=== PATIENT | female | born 1945 | race Caucasian/White ===

== ENCOUNTER 2017-05-23 11:58 | Inpatient (IN) | payer MEDICARE ==
[2017-05-23] VITALS (13 sets, daily range): BP systolic 106–138; BP diastolic 56–95; PULSE 59–138; RESP 14–20; TEMP 98–98.1; O2SAT 95–99
[~2017-05-23] VITALS: Ht 172.7 cm; Wt 126.4 kg
[~2017-05-23 11:58] MED LIST: ASPI-183 PO; CALC600T10 PO; ESTR1 PO; OMEG5CAP PO; SIMV20TA PO; TETA1INJ4 IM; TRIA40P; [UNRECOGNIZED DRUG - REMARK]
--- NOTE | 2017-05-23 12:35 | RADRPT ---
EXAM DATE/TIME: 05/23/2017 12:24 [place] COMPARISON: No previous studies available for comparison. INDICATIONS : AFIB MEDICAL HISTORY : Myocardial infarction. SURGICAL HISTORY : None. ENCOUNTER: Initial ACUITY: 3 days PAIN SCORE: 5/10 LOCATION: Bilateral chest FINDINGS: Cardiomegaly without overt congestive failure. There is no pneumothorax. The portion of the bony ske leton visualized is unremarkable. CONCLUSION: Cardiomegaly without failure. Behzad Paul MD FACR on May 23, 2017 at 12:33 Board Certified Radiologist. This report was verified electronically.
[2017-05-23 14:16] LABS: AUTOMATED NEUTROPHIL # 5.3 TH/MM3 (1.8-7.7); BASOPHIL % 0.5 % (0.0-2.0); EOSINOPHIL # 0.1 TH/MM3 (0-0.4); EOSINOPHIL % 1.2 % (0.0-4.0); HEMATOCRIT 43.2 % (35.0-46.0); HEMOGLOBIN 14.9 GM/DL (11.6-15.3); LYMPHOCYTE # 2.2 TH/MM3 (1.0-4.8); MEAN CELL VOLUME 98.7 FL (80.0-100.0); MEAN CORPUSCULAR HEMOGLOBIN 34.1 PG (27.0-34.0); MEAN CORPUSCULAR HGB CONC 34.6 % (32.0-36.0); MEAN PLATELET VOLUME 7.9 FL (7.0-11.0); MONO % 10.5 % (0.0-8.0); MONOCYTE # 0.9 TH/MM3 (0-0.9); NEUT % 61.8 % (16.0-70.0); PLATELET COUNT 287 TH/MM3 (150-450); RED BLOOD COUNT 4.37 MIL/MM3 (4.00-5.30); RED CELL DISTRIBUTION WIDTH 13.9 % (11.6-17.2); WHITE BLOOD COUNT 8.6 TH/MM3 (4.0-11.0)
[2017-05-23 14:29] LABS: INTERNATIONAL NORMALIZED RATIO 1.1 RATIO
[2017-05-23] MEDS ORDERED: DILTIAZEM HCL 25 MG/5 ML VIAL IV PUSH ONE (14:30)
[2017-05-23 14:35] LABS: ALBUMIN 3.8 GM/DL (3.4-5.0); ALT (GPT) 32 U/L (10-53); AST (GOT) 38 U/L (15-37); BICARBONATE 26.1 MEQ/L (21.0-32.0); BLOOD UREA NITROGEN 14 MG/DL (7-18); CALCIUM 8.5 MG/DL (8.5-10.1); CHLORIDE 105 MEQ/L (98-107); CREATININE 1.05 MG/DL (0.50-1.00); GLOMERULAR FILTRATION RATE 52 ML/MIN (>89); GLUCOSE,RANDOM 86 MG/DL (74-106); MAGNESIUM 2.1 MG/DL (1.5-2.5); SODIUM (NA) 138 MEQ/L (136-145)
[2017-05-23] MEDS ORDERED: ASPI-516 CHEW (14:36)
[2017-05-23 14:39] LABS: ALKALINE PHOSPHATASE 59 U/L (45-117); TOTAL BILIRUBIN ADULT 0.3 MG/DL (0.2-1.0); TROPONIN I LESS THAN 0.02 NG/ML (0.02-0.05)
--- NOTE | 2017-05-23 15:02 | PD ---
HPI Chief Complaint: Cardiac Complaint Time Seen by Provider: 14:21 Travel History International Travel<30 days: No Contact w/Intl Traveler<30days: No Traveled to known affect area: No History of Present Illness HPI This is a 71-year-old female with no significant past medical history, presents here at the request of her physician for evaluation and admission for new onset A. fib/flutter. The patient states over the last 2 weeks she's been fatigued and has had exertional shortness of breath. She denies chest pain, chest pressure. She does report that she has felt her heart fluttering. Patient states that she thought it would go away however it did not. She denies any cough or pleuritic pain. She denies any extremity swelling or edema. There are no other complaints time my examination. PFSH Past Medical History High Cholesterol: Yes Influenza Vaccination: No Past Surgical History Tonsillectomy: Yes Social History Alcohol Use: No Tobacco Use: No Substance Use: No Allergies-Medications (Allergen,Severity, Reaction): Coded Allergies: No Known Allergies (Verified Adverse Reaction, Unknown, 05/23/17) Reported Meds & Prescriptions Reported Meds & Active Scripts Active Simvastatin 20 Mg Tab 20 Mg PO DAILY Estrace (Estradiol) 1 Mg Tab 1 Mg PO DAILY Calcium + D3 (Calcium Carbonate-Cholecalciferol) 600-200 Mg-Unit Tab 1 Tab PO BID Reported Aspirin 81 Mg Chew 81 Mg CHEW DAILY Review of Systems Except as stated in HPI: all other systems reviewed are Neg General / Constitutional: No: Fever, Chills HENT: No: Headaches, Lightheadedness Cardiovascular: Positive: Palpitations, Irregular Rhythm, No: Chest Pain or Discomfort Respiratory: Positive: Shortness of Breath, No: Cough Gastrointestinal: No: Nausea, Vomiting, Abdominal Pain Genitourinary: No: Dysuria, Decreased Urinary Output Musculoskeletal: Positive: Weakness (generalized fatigue), No: Edema, Pain Neurologic: Positive: Weakness (generalized fatigue), No: Dizziness, Headache Physical Exam Narrative GENERAL: Well-developed well-nourished female in no acute rest her distress. SKIN: Focused skin assessment warm/dry. HEAD: Atraumatic. Normocephalic. EYES: No scleral icterus. No injection or drainage. ENT: No nasal bleeding or discharge. Mucous membranes pink and moist. NECK: Trachea midline. No JVD. CARDIOVASCULAR: Tachycardic with a rate in the 130s. It appears to be a flutter on monitor and EKG. RESPIRATORY: No accessory muscle use. Clear to auscultation. Breath sounds equal bilaterally. GASTROINTESTINAL: Abdomen soft, non-tender, nondistended. MUSCULOSKELETAL: No obvious deformities. No clubbing. No cyanosis. No edema. NEUROLOGICAL: Awake and alert. No obvious cranial nerve deficits. Motor grossly within normal limits. Normal speech. PSYCHIATRIC: Appropriate mood and affect; insight and judgment normal. Data Data Last Documented VS Vital Signs Date Time Temp Pulse Resp B/P (MAP) Pulse Ox O2 Delivery O2 Flow Rate FiO2 05/23/17 16:10 122 05/23/17 14:51 17 97 05/23/17 14:24 Room Air 05/23/17 12:08 98.1 Orders Orders Electrocardiogram (05/23/17 12:13) B-Type Natriuretic Peptide (05/23/17 12:13) Ckmb (Isoenzyme) Profile (05/23/17 12:13) Complete Blood Count With Diff (05/23/17 12:13) Comprehensive Metabolic Panel (05/23/17 12:13) Magnesium (Mg) (05/23/17 12:13) Prothrombin Time / Inr (Pt) (05/23/17 12:13) Act Partial Throm Time (Ptt) (05/23/17 12:13) Troponin I (05/23/17 12:13) Chest, Pa & Lat (05/23/17 12:13) Thyroid Stimulating Hormone (05/23/17 14:30) Diltiazem Inj (Cardizem Inj) (05/23/17 14:30) Diltiazem Inj (Cardizem Inj) (05/23/17 14:30) Admit To Inpatient (05/23/17 ) Vital Signs (Adult) Q4H (05/23/17 16:33) Activity Oob With Assistance (05/23/17 16:33) Senior Hadoop Developer / Telemetry .CONTINUOUS (05/23/17 16:33) Diet Heart Healthy (05/23/17 Dinner) Sodium Chloride 0.9% Flush (Ns Flush) (05/23/17 16:45) Sodium Chloride 0.9% Flush (Ns Flush) (05/23/17 21:00) Acetaminophen (Tylenol) (05/23/17 16:45) Ondansetron Inj (Zofran Inj) (05/23/17 16:45) Temazepam (Restoril) (05/23/17 16:45) Scd Bilateral/Knee High CARLA.BID (05/23/17 16:33) Naloxone Inj (Narcan Inj) (05/23/17 16:45) Magnesium Hydroxide Liq (Milk Of Magnesi (05/23/17 16:45) Sennosides (Senokot) (05/23/17 16:45) Bisacodyl Supp (Dulcolax Supp) (05/23/17 16:45) Lactulose Liq (Lactulose Liq) (05/23/17 16:45) Inpatient Certification (05/23/17 ) Metoprolol Tartrate (Lopressor) (05/23/17 22:00) Aspirin Chew (Aspirin Chew) (05/24/17 09:00) Estradiol (Estradiol) (05/24/17 09:00) Calcium-Vit D 250-125 Mg (Oscal-D 250-12 (05/23/17 21:00) Pravastatin (Pravachol) (05/24/17 09:00) Admit Order (Ed Use Only) (05/23/17 16:52) Labs Laboratory Tests Test 05/23/17 14:08 White Blood Count 8.6 TH/MM3 Red Blood Count 4.37 MIL/MM3 Hemoglobin 14.9 GM/DL Hematocrit 43.2 % Mean Corpuscular Volume 98.7 FL Mean Corpuscular Hemoglobin 34.1 PG Mean Corpuscular Hemoglobin Concent 34.6 % Red Cell Distribution Width 13.9 % Platelet Count 287 TH/MM3 Mean Platelet Volume 7.9 FL Neutrophils (%) (Auto) 61.8 % Lymphocytes (%) (Auto) 26.0 % Monocytes (%) (Auto) 10.5 % Eosinophils (%) (Auto) 1.2 % Basophils (%) (Auto) 0.5 % Neutrophils # (Auto) 5.3 TH/MM3 Lymphocytes # (Auto) 2.2 TH/MM3 Monocytes # (Auto) 0.9 TH/MM3 Eosinophils # (Auto) 0.1 TH/MM3 Basophils # (Auto) 0.0 TH/MM3 CBC Comment DIFF FINAL Differential Comment Prothrombin Time 11.0 SEC Prothromb Time International Ratio 1.1 RATIO Activated Partial Thromboplast Time 25.7 SEC Blood Urea Nitrogen 14 MG/DL Creatinine 1.05 MG/DL Random Glucose 86 MG/DL Total Protein 8.0 GM/DL Albumin 3.8 GM/DL Calcium Level 8.5 MG/DL Magnesium Level 2.1 MG/DL Alkaline Phosphatase 59 U/L Aspartate Amino Transf (AST/SGOT) 38 U/L Alanine Aminotransferase (ALT/SGPT) 32 U/L Total Bilirubin 0.3 MG/DL Sodium Level 138 MEQ/L Potassium Level 4.6 MEQ/L Chloride Level 105 MEQ/L Carbon Dioxide Level 26.1 MEQ/L Anion Gap 7 MEQ/L Estimat Glomerular Filtration Rate 52 ML/MIN Total Creatine Kinase 53 U/L Troponin I LESS THAN 0.02 NG/ML B-Type Natriuretic Peptide 88 PG/ML Thyroid Stimulating Hormone 3rd Gen 1.670 uIU/ML [facility] Medical Decision Making Medical Screen Exam Complete: Yes Emergency Medical Condition: Yes Differential Diagnosis A. fib versus a flutter versus SVT versus sinus tach Narrative Course 71-year-old female with no significant past medical history, presents here with a flutter with RVR. Patient has no history of. Patient's been not feeling well for last 2 weeks. She denies any chest pain, chest pressure. She has no history of thyroid disease. She has no history of valvular disease or murmurs. The patient has been started on a diltiazem drip after a bolus. She is rate controlled currently. Labs are within normal limits. She'll be admitted to the hospital. Case was discussed with Dr. Treviño, [facility], who is agreeable to the admission. Diagnosis Primary Impression: Atrial flutter with rapid ventricular response Admitting Information Admitting Physician Requests: Admit Butch Alfonso MD May 23, 2017 15:02
[2017-05-23] MEDS: DILTIAZEM INJ 125 MG in SODIUM CHLORIDE 0.9% INJ 100 ML IV PRN (15:06)
[2017-05-23] MEDS ORDERED: LACTULOSE SYRUP 20 GM/30 ML CUP PO PRN (16:45)
[2017-05-23] MEDS ORDERED: SODIUM CHLORIDE 0.9% FLUSH 10 ML FLUSH IV FLUSH PRN (16:45)
[2017-05-23] MEDS ORDERED: TEMAZEPAM 15 MG CAP PO PRN (16:45)
[2017-05-23] MEDS ORDERED: NALOXONE HCL 0.4 MG/ML AMP IV PUSH PRN (16:45)
[2017-05-23] MEDS ORDERED: SENNOSIDES 8.6 MG TAB PO PRN (16:45)
[2017-05-23] MEDS ORDERED: MAGNESIUM HYDROXIDE SUSP 30 ML CUP PO PRN (16:45)
[2017-05-23] MEDS ORDERED: ACETAMINOPHEN 325 MG TAB PO PRN (16:45)
[2017-05-23] MEDS ORDERED: ONDANSETRON HCL 4 MG/2 ML VIAL IVP PRN (16:45)
[2017-05-23] MEDS ORDERED: BISACODYL 10 MG SUPP RECTAL PRN (16:45)
--- NOTE | 2017-05-23 17:12 | HHI.HP ---
HPI Service [facility] Primary Care Physician Rasheeda Tijerina MD Admission Diagnosis new onset aflutter with rvr. Diagnoses: Chief Complaint: Atrial flutter. Travel History International Travel<30 Days: No Contact w/Intl Traveler <30 Da: No Traveled to Known Affected Are: No History of Present Illness Ms. Sierra is a transgender 71 year old female with a history of hyperlipidemia who presents to the ED at the advise of her PCP regarding Atrial flutter/Atrial fibrillation. She reports fatigue, exertional dyspnea over two weeks prior to this admission. At the time of this interview, she denies any chest pain, shortness of breath, fever, chills. No cough, abdominal pain. No changes in bowel or bladder habits. Patient's is at bedside. Review of Systems Except as stated in HPI: all other systems reviewed are Neg Past Family Social History Past Medical History Hyperlipidemia Past Surgical History Gender change surgery (male --> female). Tonsillectomy Reported Medications Simvastatin 20 Mg Tab 20 Mg PO DAILY Estrace (Estradiol) 1 Mg Tab 1 Mg PO DAILY Calcium + D3 (Calcium Carbonate-Cholecalciferol) 600-200 Mg-Unit Tab 1 Tab PO BID Reported Aspirin 81 Mg Chew 81 Mg CHEW DAILY Allergies: Coded Allergies: No Known Allergies (Verified Adverse Reaction, Unknown, 05/23/17) Family History Mom/Dad had cancer. No heart disease. Social History Denies using tobacco, alcohol or illicit drugs. Physical Exam Vital Signs Vital Signs Date Time Temp Pulse Resp B/P (MAP) Pulse Ox O2 Delivery O2 Flow Rate FiO2 05/23/17 16:10 122 05/23/17 15:29 87 115/72 (86) 05/23/17 15:06 70 115/72 05/23/17 14:51 87 17 97 05/23/17 14:43 130 18 106/75 (85) 98 05/23/17 14:24 132 18 132/78 (96) 97 Room Air 05/23/17 12:08 98.1 138 14 138/95 (109) 97 Physical Exam GENERAL: This is a well-nourished, well-developed patient, in no apparent distress. Obese. SKIN: No rashes, ecchymoses or lesions. Warm and dry. HEAD: Atraumatic. Normocephalic. No temporal or scalp tenderness. EYES: Pupils equal round and reactive. No injection or drainage. ENT: Nose without bleeding, purulent drainage or septal hematoma. Airway patent. NECK: Trachea midline. No lymphadenopathy. Supple, nontender, no meningeal signs. CARDIOVASCULAR: Irreg rhythm with tachycardia without murmurs, gallops, or rubs. No JVD. RESPIRATORY: Clear to auscultation. Breath sounds equal bilaterally. No wheezes , rales, or rhonchi. GASTROINTESTINAL: Abdomen soft, non-tender, nondistended. No guarding. MUSCULOSKELETAL: Extremities without clubbing, cyanosis, or edema. NEUROLOGICAL: Awake and alert. Cranial nerves II through XII intact. No focal neurological deficits. Normal speech. Laboratory Laboratory Tests Test 05/23/17 14:08 White Blood Count 8.6 Red Blood Count 4.37 Hemoglobin 14.9 Hematocrit 43.2 Mean Corpuscular Volume 98.7 Mean Corpuscular Hemoglobin 34.1 Mean Corpuscular Hemoglobin Concent 34.6 Red Cell Distribution Width 13.9 Platelet Count 287 Mean Platelet Volume 7.9 Neutrophils (%) (Auto) 61.8 Lymphocytes (%) (Auto) 26.0 Monocytes (%) (Auto) 10.5 Eosinophils (%) (Auto) 1.2 Basophils (%) (Auto) 0.5 Neutrophils # (Auto) 5.3 Lymphocytes # (Auto) 2.2 Monocytes # (Auto) 0.9 Eosinophils # (Auto) 0.1 Basophils # (Auto) 0.0 CBC Comment DIFF FINAL Differential Comment Prothrombin Time 11.0 Prothromb Time International Ratio 1.1 Activated Partial Thromboplast Time 25.7 Blood Urea Nitrogen 14 Creatinine 1.05 Random Glucose 86 Total Protein 8.0 Albumin 3.8 Calcium Level 8.5 Magnesium Level 2.1 Alkaline Phosphatase 59 Aspartate Amino Transf (AST/SGOT) 38 Alanine Aminotransferase (ALT/SGPT) 32 Total Bilirubin 0.3 Sodium Level 138 Potassium Level 4.6 Chloride Level 105 Carbon Dioxide Level 26.1 Anion Gap 7 Estimat Glomerular Filtration Rate 52 Total Creatine Kinase 53 Troponin I LESS THAN 0.02 B-Type Natriuretic Peptide 88 Thyroid Stimulating Hormone 3rd Gen 1.670 Result Diagram: 05/23/17 1408 05/23/17 1408 Imaging Last Impressions Chest X-Ray 05/23/17 1213 Signed Impressions: Service Date/Time: Tuesday, May 23, 2017 12:24 - CONCLUSION: Cardiomegaly without failure. Behzad Paul MD FACR Neshai VTE Risk Assessment Caprini VTE Risk Assessment: Mod/High Risk (score >= 2) Caprini Risk Assessment Model Point Value = 1 Point Value = 2 Point Value = 3 Point Value = 5 Age 41-60 Minor surgery BMI > 25 kg/m2 Swollen legs Varicose veins or History of unexplained or recurrent spontaneous Oral contraceptives or hormone replacement Sepsis (< 1 month) Serious lung disease, including pneumonia (< 1 month) Abnormal pulmonary function Acute myocardial infarction Congestive heart failure (< 1 month) History of inflammatory bowel disease Medical patient at bed rest Age 61-74 Arthroscopic surgery Major open surgery (> 45 min) Laparoscopic surgery (> 45 min) Malignancy Confined to bed (> 72 hours) Immobilizing plaster cast Central venous access Age >= 75 History of VTE Family history of VTE Factor V Leiden Prothrombin [id number] Lupus anticoagulant Anticardiolipin antibodies Elevated serum homocysteine Heparin-induced thrombocytopenia Other congenital or acquired thrombophilia Stroke (< 1 month) Elective arthroplasty Hip, pelvis, or leg fracture Acute spinal cord injury (< 1 month) Prophylaxis Regimen Total Risk Factor Score Risk Level Prophylaxis Regimen 0-1 Low Early ambulation 2 Moderate Order ONE of the following: *Sequential Compression Device (SCD) *Heparin 5000 units SQ BID 3-4 Higher Order ONE of the following medications: *Heparin 5000 units SQ TID *Enoxaparin/Lovenox 40 mg SQ daily (WT < 150 kg, CrCl > 30 mL/min) *Enoxaparin/Lovenox 30 mg SQ daily (WT < 150 kg, CrCl > 10-29 mL/min) *Enoxaparin/Lovenox 30 mg SQ BID (WT < 150 kg, CrCl > 30 mL/min) AND/OR *Sequential Compression Device (SCD) 5 or more Highest Order ONE of the following medications: *Heparin 5000 units SQ TID (Preferred with Epidurals) *Enoxaparin/Lovenox 40 mg SQ daily (WT < 150 kg, CrCl > 30 mL/min) *Enoxaparin/Lovenox 30 mg SQ daily (WT < 150 kg, CrCl > 10-29 mL/min) *Enoxaparin/Lovenox 30 mg SQ BID (WT < 150 kg, CrCl > 30 mL/min) AND *Sequential Compression Device (SCD) Assessment and Plan Problem List: (1) Atrial flutter ICD Code: I48.92 - Unspecified atrial flutter (2) Hyperlipidemia ICD Code: E78.5 - Hyperlipidemia, unspecified Assessment and Plan Ms. Sierra is a pleasant 71 year old female (trans-gender) who presents to the ED today at the advise of her PCP regarding Atrial flutter/Atrial fibrillation. She does not have any history of cardiac arrhythmia. - Atrial flutter - New onset, EKG reviewed by me. - Patient is currently on Cardizem drip, we will continue this drip. - Start Metoprolol 12.5mg Q8hrs, we can likely increase to 25mg BID if BP permits. - Cardizem drip was maxed out and heart rate was still in the RVR range. - Will initiate Cardizem PO as well. - We'll obtain 2D echo and Cardiology (EP) consult. Patient will likely benefit from RF ablation. - [id number] score would be 1 (age, biological gender male). - Aspirin 81mg Qday would be reasonable for now. - Hyperlipidemia - continue statin. Full code. Heparin SQ Physician Certification 2 Midnight Certification Type: Admission for Inpatient Services Order for Inpatient Services The services are ordered in accordance with Medicare regulations or non- Medicare payer requirements, as applicable. In the case of services not specified as inpatient-only, they are appropriately provided as inpatient services in accordance with the 2-midnight benchmark. Estimated LOS (days): 2 days is the estimated time the patient will need to remain in the hospital, assuming treatment plan goals are met and no additional complications. Post-Hospital Plan: Home Sarah Treviño DO May 23, 2017 17:11
[2017-05-23] MEDS ORDERED: DILTIAZEM HCL 60 MG TAB PO ONE (18:30)
[2017-05-23] MEDS ORDERED: METOPROLOL TARTRATE 25 MG TAB PO SCH (22:00)
[2017-05-23] MEDS: SODIUM CHLORIDE 0.9% FLUSH 10 ML FLUSH IV FLUSH SCH (22:06)
[2017-05-23] MEDS: CALCIUM/VITAMIN D 250 MG/125 U TAB PO SCH (22:06)
[2017-05-24] VITALS (16 sets, daily range): BP systolic 94–121; BP diastolic 54–76; PULSE 56–93; RESP 16–18; TEMP 97.3–98.6; O2SAT 93–97
[2017-05-24] MEDS: DILTIAZEM HCL 60 MG TAB PO SCH ×3 (00:20→13:06)
[2017-05-24] MEDS: DILTIAZEM INJ 125 MG in SODIUM CHLORIDE 0.9% INJ 100 ML IV PRN (00:55)
[2017-05-24] MEDS ORDERED: HEPARIN SODIUM - SQ 10,000 UNITS/ML VIAL SQ SCH (09:00)
[2017-05-24] MEDS: PRAVASTATIN SOD 40 MG TAB PO SCH (09:00)
--- NOTE | 2017-05-24 09:42 | HHI.PR ---
Subjective Remarks follow-up atrial fibrillation/flutter 05/24/17-patient seen and examined, currently denies any chest pain, shortness of breath or heart palpitation. Patient reported a one-month history of viral illness for which he self medicated with cough syrup Objective Vitals Vital Signs Date Time Temp Pulse Resp B/P (MAP) Pulse Ox O2 Delivery O2 Flow Rate FiO2 05/24/17 08:03 97.3 56 17 114/65 (81) 96 05/24/17 07:13 Room Air 05/24/17 04:25 58 05/24/17 04:00 98.0 60 16 95/57 (70) 95 05/24/17 04:00 Room Air 05/24/17 02:00 59 05/24/17 01:00 59 05/24/17 00:55 63 94/54 05/24/17 00:00 Room Air 05/24/17 00:00 98.2 60 16 94/54 (67) 96 05/23/17 23:59 59 05/23/17 20:03 104 05/23/17 20:00 Room Air 05/23/17 20:00 98.0 84 16 116/56 (76) 96 05/23/17 18:30 05/23/17 17:53 127 18 120/56 (77) 96 Room Air 05/23/17 17:40 98.1 103 20 124/60 (81) 95 05/23/17 17:29 93 18 120/70 (87) 99 Room Air 05/23/17 17:22 92 18 120/70 (87) 96 Room Air 05/23/17 16:10 122 05/23/17 15:29 87 115/72 (86) 05/23/17 15:06 70 115/72 05/23/17 14:51 87 17 97 05/23/17 14:43 130 18 106/75 (85) 98 05/23/17 14:24 132 18 132/78 (96) 97 Room Air 05/23/17 12:08 98.1 138 14 138/95 (109) 97 I/O 05/23/17 05/23/17 05/23/17 05/24/17 05/24/17 05/24/17 06:59 14:59 22:59 06:59 14:59 22:59 Intake Total 120 ml Balance 120 ml Intake IV Total 120 ml Result Diagram: 05/23/17 1408 05/23/17 1408 Imaging Last Impressions Chest X-Ray 05/23/17 1213 Signed Impressions: Service Date/Time: Tuesday, May 23, 2017 12:24 - CONCLUSION: Cardiomegaly without failure. Behzad Paul MD FACR Objective Remarks GENERAL: NAD SKIN: Warm and dry. HEAD: Normocephalic. EYES: No scleral icterus. No injection or drainage. NECK: Supple, trachea midline. No JVD or lymphadenopathy. CARDIOVASCULAR: Irregular Regular rate and rhythm without murmurs, gallops, or rubs. RESPIRATORY: Breath sounds equal bilaterally. No accessory muscle use. GASTROINTESTINAL: Abdomen soft, non-tender, nondistended. MUSCULOSKELETAL: No cyanosis, or edema. BACK: Nontender without obvious deformity. No CVA tenderness. A/P Problem List: (1) Atrial flutter ICD Code: I48.92 - Unspecified atrial flutter (2) Hyperlipidemia ICD Code: E78.5 - Hyperlipidemia, unspecified Assessment and Plan 71-year-old female with - Atrial flutter/ fibrillation - s/p Cardizem drip and Currently on Cardizem by mouth 60 mg every 6H, Lopressor 25mg BID , aspirin 81 mg daily. - Thyroid dysfunction ruled out and Continue with ACS rule out per protocol with serial cardiac enzyme and EKGs - 2D echo pending and Cardiology (EP) consulted - [id number] score would be 1 (age, biological gender male). - Hyperlipidemia - continue statin. Full code. Heparin SQ Trenton Landry MD May 24, 2017 09:42
[2017-05-24] MEDS: ASPIRIN 81 MG CHEW TAB CHEW SCH (09:56)
[2017-05-24] MEDS: ESTRADIOL 1 MG TAB PO SCH (09:56)
[2017-05-24] MEDS: SODIUM CHLORIDE 0.9% FLUSH 10 ML FLUSH IV FLUSH SCH ×2 (09:56→22:03)
[2017-05-24] MEDS: CALCIUM/VITAMIN D 250 MG/125 U TAB PO SCH ×2 (09:57→22:01)
[2017-05-24] MEDS: METOPROLOL TARTRATE 25 MG TAB PO SCH ×2 (09:58→10:00)
[2017-05-24 11:46] LABS: TROPONIN I LESS THAN 0.02 NG/ML (0.02-0.05)
[2017-05-24] MEDS ORDERED: PROPOFOL 200 MG/20 ML AMP IV ONE (12:00)
[2017-05-24] MEDS ORDERED: PHENYLEPH/NS 1000 MCG/10 ML SYR IV ONE (12:00)
[2017-05-24] MEDS ORDERED: ePHEDrine/NS 25 MG/5 ML SYRINGE IV ONE (12:00)
--- NOTE | 2017-05-24 12:46 | EKG ---
Date Performed: 05/24/2017 Time Performed: 11:47:58 PTAGE: 71 years EKG: ATRIAL FLUTTER WITH VARIABLE BLOCK PREVIOUS TRACING : 05/23/2017 14.05 Compared to the previous tracing rate slower DOCTOR: Felicia Jara Interpretating Date/Time 05/24/2017 12:46:00
--- NOTE | 2017-05-24 15:09 | ECHRPT ---
Indication: AFIB FLUTTER CONCLUSIONS Normal left ventricular size. Wall thickness is normal. The left ventricular systolic function is moderately reduced with an estimated ejection fraction in the range of 40-45%. Mitral annular calcification is present. There is a trivial pericardial effusion present. BP: 95 / 57 HR: 60 Rhythm: MEASUREMENTS (Male / Female) Normal Values Technical Quality:Fair 2D ECHO LV Diastolic Diameter PLAX 4.4 cm 4.2 - 5.9 / 3.9 - 5.3 cm LV Systolic Diameter PLAX 3.3 cm IVS Diastolic Thickness 1.0 cm 0.6 - 1.0 / 0.6 - 0.9 cm LVPW Diastolic Thickness 0.6 cm 0.6 - 1.0 / 0.6 - 0.9 cm LV Relative Wall Thickness 0.4 RV Internal Dim ED PLAX 1.9 cm DOPPLER Mitral E Point Velocity 64.7 cm/s TR Peak Velocity 174.0 cm/s TR Peak Gradient 12.1 mmHg FINDINGS LEFT VENTRICLE Normal left ventricular size. Wall thickness is normal. The left ventricular systolic function is moderately reduced with an estimated ejection fraction in the range of 40-45%. RIGHT VENTRICLE Normal right ventricular size and systolic function. LEFT ATRIUM The left atrial size is normal. RIGHT ATRIUM The right atrial size is normal. ATRIAL SEPTUM Normal atrial septal thickness without atrial level shunting by limited color doppler interrogation. AORTA The aortic root and proximal ascending aorta are normal in size on limited imaging. MITRAL VALVE Mitral annular calcification is present. AORTIC VALVE Trileaflet aortic valve. No aortic valve stenosis or regurgitation. TRICUSPID VALVE Structurally normal tricuspid valve. No tricuspid valve stenosis or regurgitation. PULMONARY VALVE The pulmonary valve is not well visualized. VESSELS The inferior vena cava is normal in size. PERICARDIUM There is a trivial pericardial effusion present. Rishabh Cox MD, FACC, FSCAI (Electronically Signed) Final Date:24 May 2017 15:08
--- NOTE | 2017-05-24 16:29 | EKG ---
Date Performed: 05/23/2017 Time Performed: 14:05:18 PTAGE: 71 years EKG: ATRIAL FLUTTER/TACHYCARDIA WITH RAPID VENTRICULAR RESPONSE INFERIOR MYOCARDIAL INFARCTION A NTEROSEPTAL MYOCARDIAL INFARCTION ABNORMAL ECG NO PREVIOUS TRACING Clinical correlation strongly recommended DOCTOR: Azam Rankin Interpretating Date/Time 05/24/2017 16:28:47
[2017-05-24] MEDS ORDERED: HEPARIN-NS/PF INJ 500 ML ONE (16:40)
[2017-05-24 17:28] LABS: TROPONIN I LESS THAN 0.02 NG/ML (0.02-0.05)
[2017-05-24] MEDS ORDERED: SODIUM CHLOR 0.9% 250 ML INJ 250 ML ONE (17:44)
[2017-05-24] MEDS ORDERED: ISOPROTERENOL HCL 1 MG/5 ML AMP ONE (17:44)
[2017-05-24] MEDS ORDERED: PROPOFOL 200 MG/20 ML AMP ONE (17:50)
--- NOTE | 2017-05-24 18:14 | CATHPROC ---
AVIS HIS Report Study Information Study Number Admission Scheduled Start Study Start [id number] May 23 2017 4:54PM 05/24/2017 May 24 2017 3:51PM [facility] Electrophysiology Study Admit Source Facility Department Other [facility] Physician and Clinical Staff Initial Cleo Maldonado Wireworker Supervisor Jonathan, Kat,WARP KNITTER HELPER TECH2 Wireworker Supervisor Brooke Walter,RN Other Anesthesia, TOOL AND PRODUCTION PLANNER Recorder Brooke Walter,RA Recorder Lynne Gonzalez RN Scrub Damari Ibarra,ELECTRIC MOTOR FITTER TECH2 Procedures Performed Procedure Location (Site) Vessel Name Ablation Procedure RF Ablation Isthmus Other Equipment Time Tab Card Press Operator Description Size Mfg Part Number Used/Scraped BIOSENSE ERVIN CATHETER, CELSIUS DS, 8MM, F [id number] 16:54 FR 7 Used INC. TYPE QUAD *[id number] 16:52 noodls [employer] PACK, CCL CUSTOM * Used *[id number] 16:52 noodls PACER DAON, LIMB * 2530 *[id number] Used [id number] 16:52 [employer],WARM AIR CCL * Used *[id number] 16:54 [employer] CATHETER, JSN, QUAD FR 5 Used *[id number] 16:54 [employer] MEDICAL CATHETER, JSN, QUAD FR 5 Used *[id number] 16:54 [employer] MEDICAL CATHETER, JSN, QUAD FR 5 Used *[id number] 16:54 [employer] MEDICAL CATHETER, JSN, QUAD FR 5 Used *[id number] 16:54 [employer] MED[employer] SHEATH, EPS, FR5 FAST CATH FR 5 Used *[id number] 16:54 [employer] SHEATH, EPS, FR5 FAST CATH FR 5 Used *[id number] 16:54 [employer] SHEATH, EPS, FR5 FAST CATH FR 5 Used *[id number] 16:54 [employer] SHEATH, EPS, FR6 FAST CATH FR 6 Used *[id number] 16:54 [employer] SHEATH, EPS, FR8 FAST CATH FR 8 Used *[id number] History: Allergies Allergy Reaction No Known Allergies History: Risk Factors Family History of Hypertension Dyslipidemia Previous NH Previous Heart Failure Premature CAD Yes Yes No No No Prior Valve Prior PCI Prior CABG Surgery No No No Cerebrovascular Peripheral Artery Chronic Lung On Dialysis Diabetes Disease Disease Disease No No No No No History: Risk Factors Selection Items Obesity Labs Hgb (g/dl) Hct (%) RBC (MIL/MM3) WBC (l/cumm) Platelets (thousands) 11.60-17.00 35.00-51.00 4.00-5.90 4.00-11.00 150.00-450.00 14.0 43 4.3 8.6 287 Glucose (mg/dl) BUN (mg/dl) Creatinine (mg/dl) BUN:Creatinine (1:x) 74.00-106.00 7.00-18.00 0.50-1.30 10.00-20.00 82 14 1.0 14 Na (meq/l) K (meq/l) 136.00-145.00 3.50-5.10 138 4.6 INR (PTT:PT) 0.90-1.10 1.1 Medication Medication Total Dose (Bolus/Oral) Medication Total Dosage/Unit 1% XYLOCAINE 40 mL Medications (Bolus/Oral) Medication Time Given Dosage/Unit Administered By Reason 1% XYLOCAINE 05/24/2017 5:24:41 PM 20 mL Cleo Burton 20 mL 1% XYLOCAINE given in lab by Cleo Burton in Left Groin via Subcutaneous. Ordered by Didier Burton 1% XYLOCAINE 05/24/2017 5:31:35 PM 20 mL Cleo Burton 20 mL 1% XYLOCAINE given in lab by Cleo Burton in Right Groin via Subcutaneous. Ordered by Jazmín Burton. Medication (Drip) Medication Time Given Dosage/Unit Concentration/Unit Diluent (ml) Solution ISUPREL 05/24/2017 5:48:15 PM 10 mcg/min 1 mg 250 NaCl .9 10 mcg/min ISUPREL given in lab by [place] TOOL AND PRODUCTION PLANNER in Left Antecubital via Peripheral IV. Pump/Drip Flow = 150 ml/hr using NaCl .9 with a concentration of 1 mg in 250 ml. Ordered by Cleo Butron. ISUPREL DRIP STOPPED 05/24/2017 5:54:36 PM 0 units/hr 0 D5W 0 units/hr ISUPREL DRIP STOPPED given in lab by Anesthesia, TOOL AND PRODUCTION PLANNER. Pump/Drip Flow = 0 ml/hr using D5W. Ordered by Cleo Burton. Initial Case Assessment Cardiovascular HR NIBP Chest Pain 60 109/57 0 Edema Present Skin color Skin None Normal Warm Dry Circulatory - Right Pulses Dorsalis Pedis 1 Scale (0,1,2,3,4,d) Circulatory - Left Pulses Dorsalis Pedis 1 Scale (0,1,2,3,4,d) Circulatory - Lower Extremities Color Lower Right Color Lower Left Normal Normal Neurological State Oriented to time-place- Alert Moves all extremities person Respiration - General Respiration Rate SpO2 (%) (B/min) 18 97 Final Case Assessment Cardiovascular HR Rhythm NIBP Chest Pain 93 NSR 95/53 0 Edema Present Skin color Skin None Normal Warm Dry Circulatory - Right Pulses Dorsalis Pedis Posterior Tibial Femoral 1 1 1 Scale (0,1,2,3,4,d) Circulatory - Left Pulses Dorsalis Pedis Posterior Tibial Femoral 1 1 1 Scale (0,1,2,3,4,d) Circulatory - Lower Extremities Color Lower Right Color Lower Left Normal Normal Neurological State Oriented to time-place- Alert Moves all extremities person Respiration - General Respiration Rate SpO2 (%) O2 (lpm) (B/min) 19 96 4 Chronological Log Time Study Chronological Log 16:18:50 Patient arrived via Bed. 16:18:50 Patient Name, D.O.B, / Armband Verified By R.N. 16:18:50 Consent signed by the physician and the patient and verified by the [facility] staff. 16:18:50 Patient has been NPO for More than 6Hrs. 16:18:52 Pre-op and post- op instructions given; patient acknowledges understanding of instructions. 16:18:55 History and physical on the chart. 16:20:53 Skin Breakdown- small purple bruise to Rt lower abd. No open areas per pt. 16:21:37 Patient Warmer Placed on the Table. 16:21:38 Disposable Defibrillator Pads Placed On Patient. 16:21:39 Gwendolyn Prominences Protected 16:21:41 A # 20 IV was noted in the Antecubital (left). Grade = 0 0.9%NaCl @ KVO 16:22:01 A # 20 IV was noted in the Hand (right). Grade = 0 0.9% NaCl @ KVO 16:22:30 Verbal Stimulation=2 Physical Stimulation=2 Airway=2 Respiration=2 TOTAL=8. (0=absent, 1=li mited, 2=present) 16:30:33 Anesthesia at bedside. Assumes care of patient. Assessment: Initial Case, HR=60 BPM, ZHUZ=971/57 mmhg, Chest Pain=0, Edema=None, Color=Normal, Skin = Warm, Dry Right Pulses: German Ped=1 Left Pulses: German Ped=1 16:33:00 Lower Right Extremities: Color=Normal Lower Left Extremities: Color=Normal Neurological: State=Alert, Ox3, HERNÁNDEZ Respiration: Resp=18 B/min, SpO2=97 % 16:38:00 Table restraints applied according to hospital policy 16:42:47 Bilateral groins prepped with 2% chlorhexidine. 16:45:37 Draped after a 3 minute waiting time. 16:54:43 Echo present in lab for RAUL. 16:55:44 MD paged 17:03:18 Reference ECG taken 17:15:58 The Recorder is being relieved by Lynne Gonzalez RN. 17:17:31 MD arrived. Time Out. Correct patient, procedure, procedure equipment, site and side verified with physicia n present. Time 17:19:08 concurred by MD, individual staff and TOOL AND PRODUCTION PLANNER. Time Out #2 - Consents verified, patient in correct position, all results are labled and displa yed, safety precautions 17:19:13 taken, antibiotics administered. Time out concurred by MD, individual staff and TOOL AND PRODUCTION PLANNER in procedu re 17:19:54 Case Start 17:19:57 RAUL in progress 17:24:01 RAUL complete 17:24:41 20 mL 1% XYLOCAINE given in lab by Cleo Burton in Left Groin via Subcutaneous. Ordered by Cleo Burton. 17:25:07 Vascular access was obtained in the Fem Vein (left). 17:25:21 Vascular access was obtained in the Fem Vein (left). 17:25:31 Vascular access was obtained in the Fem Vein (left). 17:26:47 A SHEATH, EPS, FR5 FAST CATH FR 5 was advanced into the Fem Vein (left) using the Modified Seldinger technique. 17:27:54 A SHEATH, EPS, FR5 FAST CATH FR 5 was advanced into the Fem Vein (left) using the Modified Seldinger technique. 17:27:59 A SHEATH, EPS, FR5 FAST CATH FR 5 was advanced into the Fem Vein (left) using the Modified Seldinger technique. 17:31:35 20 mL 1% XYLOCAINE given in lab by Cleo Burton in Right Groin via Subcutaneous. Ordered b y Cleo Burton. 17:32:07 Vascular access was obtained in the Fem Vein (right). 17:32:27 Vascular access was obtained in the Fem Vein (right). 17:33:39 A SHEATH, EPS, FR6 FAST CATH FR 6 was advanced into the Fem Vein (right) using the Modified Seldinger technique. 17:33:49 A SHEATH, EPS, FR8 FAST CATH FR 8 was advanced into the Fem Vein (right) using the Modified Seldinger technique. A CATHETER, JSN, QUAD FR 5 was advanced vis Fem Vein (right) and placed in the CS. Placement wa s visually 17:35:21 confirmed under fluoroscopy. A CATHETER, JSN, QUAD FR 5 was advanced vis Fem Vein (left) and placed in the HIS. Placement wa s visually 17:36:17 confirmed under fluoroscopy. A CATHETER, JSN, QUAD FR 5 was advanced vis Fem Vein (left) and placed in the HRA. Placement wa s visually 17:36:38 confirmed under fluoroscopy. A CATHETER, JSN, QUAD FR 5 was advanced vis Fem Vein (left) and placed in the RVA. Placement wa s visually 17:36:46 confirmed under fluoroscopy. A CATHETER, CELSIUS DS, 8MM, F TYPE QUAD FR 7 was advanced vis Fem Vein (right) and placed in t he Isthmus. 17:37:39 Placement was visually confirmed under fluoroscopy. 17:39:25 RF Ablation of the Isthmus with a CATHETER, CELSIUS DS, 8MM, F TYPE QUAD FR 7. 17:42:05 EP Study in progress 10 mcg/min ISUPREL given in lab by Anesthesia, TOOL AND PRODUCTION PLANNER in Left Antecubital via Peripheral IV. Pu mp/Drip Flow = 150 17:48:15 ml/hr using NaCl .9 with a concentration of 1 mg in 250 ml. Ordered by Cleo Burton. 0 units/hr ISUPREL DRIP STOPPED given in lab by Anesthesia, TOOL AND PRODUCTION PLANNER. Pump/Drip Flow = 0 ml/hr us ing D5W. Ordered by 17:54:36 Cleo Burton. 17:55:13 Case End 17:56:12 Catheter(s) removed without difficulty 17:56:36 No case complications noted. 17:56:37 Cine recording checked. 17:56:46 Sheath removed; pressure applied to bilateral groins by TONI Wetzel and ALCON Diego. 18:00:52 CIC called. Spoke to [place]. 18:01:04 Bedside Report will be given. Assessment: Final Case, HR=93 BPM, Rhythm=NSR, NIBP=95/53 mmhg, Chest Pain=0, Edema=None, Col or=Normal, Skin = Warm, Dry Right Pulses: German Ped=1, Post Tib=1, Femoral=1 Left Pulses: German Ped=1, Post Tib=1, Femoral=1 18:04:00 Lower Right Extremities: Color=Normal Lower Left Extremities: Color=Normal Neurological: State=Alert, Ox3, HERNÁNDEZ Respiration: Resp=19 B/min, SpO2=96 %, O2=4 lpm 18:05:05 Verbal Stimulation=2 Physical Stimulation=2 Airway=2 Respiration=2 TOTAL=2. (0=absent, 1= limited, 2=present) 18:11:08 Sterile dressing applied to site 18:11:16 Defibrillator and ground pads removed. Skin intact. 18:11:28 Ablation procedure performed: Aflutter. 18:11:41 EP Procedure was performed. 18:18:00 Patient moved to [facility] End Study - Contrast Media Used In Study Contrast Total Opened (mL) Total Used (mL) Total Wasted (mL) Unspecified 0 0 0 End Study - Maximum Contrast Load Max Contrast Load (mL) 629.1 End Study - Radiation Exposure Fluoro Time (minutes) 1.6 End Study - Sheaths Sheaths Pulled By Sheath Hold Time (min) Damari Ibarra 20 End Study - Patient Disposition Complications Transferred To Interventional Outcome No Telemetry Bed successful
[2017-05-24] MEDS ORDERED: LORazepam 2 MG/ML VIAL IV PUSH PRN (18:15)
[2017-05-24] MEDS ORDERED: oxyCODONE/ACETAMINOPHEN 5 MG/325 MG TAB PO PRN ×2 (18:15)
[2017-05-24] MEDS ORDERED: LIDOCAINE HCL 1% 50 ML VIAL INFIL PRN (18:15)
[2017-05-24] MEDS ORDERED: BACITRACIN OINT 0.9 GM PKT TOP ONE (18:15)
[2017-05-24] MEDS ORDERED: ONDANSETRON HCL 4 MG/2 ML VIAL IV PUSH PRN (18:15)
[2017-05-24] MEDS ORDERED: SODIUM CHLOR 0.9% 250 ML INJ 250 ML IV PRN (18:15)
[2017-05-24] MEDS ORDERED: ATROPINE SULFATE 1 MG/ML VIAL IV PUSH PRN (18:15)
--- NOTE | 2017-05-24 18:24 | MB ---
cc: CONSTANCE MALLORY M.D. DATE OF CONSULTATION: 05/24/2017 REASON FOR CONSULTATION: Atrial flutter with biventricular response. HISTORY OF PRESENT ILLNESS: Ms. Sierra is a 71-year-old female with history of morbid obesity, episode of tachyarrhythmia, admitted to the emergency room due to atrial flutter with biventricular response. During hospitalization, medication was initiated. I was consulted for evaluation and management. The chart was reviewed. The patient was evaluated. ALLERGIES: NONE. SOCIAL HISTORY Negative for smoking and drinking. FAMILY HISTORY Noncontributory to her current medical condition. MEDICATIONS 1. Zocor. 2. Estradiol. 3. Aspirin. 4. Multivitamin. 5. Cardizem p.o. 6. Heparin subcu. 7. Metoprolol. 8. Pravachol. REVIEW OF SYSTEMS She refers palpitation and shortness of breath but no chest pain or chest discomfort. PHYSICAL EXAMINATION: Alert, fully oriented. VITAL SIGNS: Blood pressure on evaluation 140/65, pulse 56, respiratory 18. LUNGS: Ventilated. CARDIOVASCULAR: S1-S2, irregular. No gallop. ABDOMEN: Obese, no masses. EXTREMITIES: No edema. Electrocardiogram showed atrial flutter. LABORATORY DATA Hemoglobin 14.9, white blood cell 8.6, INR 1.1, potassium 4.6, creatinine 1.05. ASSESSMENT AND RECOMMENDATIONS Ms. Sierra has atrial flutter. She requires medication to control, very symptomtic. At this point my recommendation is esophageal echo. If there is no clot, then atrial flutter ablation. The risks, the nature and the benefit of the procedure are clearly stated to her. Risks include pneumothorax, cardiac perforation, stroke and even . She understood and agreed to proceed. Procedure will be performed during hospitalization. Constance Mallory MD /SUKH /5:43 PM /5:51 PM
--- NOTE | 2017-05-24 18:42 | MA ---
cc: CONSTANCE MALLORY M.D. DATE 05/24/2017 Electrophysiology study, CS cannulation, 3-D mapping, radiofrequency ablation of atrial flutter. HISTORY Mrs. Sierra is a 71-year-old female with atrial flutter, referred for electrophysiology study and ablation. The risks, the nature and the benefit of the procedure are clearly stated to her. Risks include pneumothorax, cardiac perforation, stroke and even . She understood and agreed to proceed. DETAILS OF PROCEDURE As written informed consent was obtained prior to her transesophageal echo, the patient was kept on the table where she was prepped and draped in the usual sterile fashion. Conscious sedation was initiated and maintained throughout the procedure by anesthesiologist. Once sedation verified, the right and left inguinal areas were anesthetized with 2% Xylocaine. Using modified Seldinger technique, the left femoral vein was cannulated on three occasions and three guidewires were advanced. Then the right femoral vein was cannulated on two occasions and two guidewire were advanced. Over the wire three 5, one 6 and one 8 Bulgarian Hemaquets were advanced. Then under fluoroscopic guidance through the 5-Bulgarian and 6 Bulgarian Hemaquet, four 5-Bulgarian Tommy curved quadripolar electrophysiology catheters were advanced and positioned on the His, upper right atrium, coronary sinus and right ventricular apex. Basic interval was measured. The patient was in atrial flutter. Further cycle length was around 240 milliseconds. Entrainment was performed. It was positive. Then through the 8-Bulgarian Hemaquet, a Cordis Knox F curve 8 mm mapping radiofrequency ablation catheter was advanced. Then the catheter was ____ at the tricuspid valve annulus. Critical isthmus was mapped and ablated. During ablation cycle length prolonged progressively until converted into sinus rhythm. Further burn was delivered in the area. Then atrial pacing protocol was performed of the coronary sinus. No tachyarrhythmia was induced. Then Isuprel infused, atrial pacing protocol was repeated and again no tachyarrhythmia was induced. At that point procedure was complete. All catheters were removed. The patient going to be transferred to recovery room. No incident to report. The patient tolerated the procedure. Blood loss minimal. IMPRESSION 1. Electrocardiogram. At baseline the patient was in atrial flutter. Postprocedure the patient in sinus rhythm. 2. Basic interval. Base cycle length was around 700 milliseconds. Post ablation it was around 980 milliseconds. AH at 120 and HV at 82 milliseconds. 3. Tachyarrhythmia. Atrial flutter was mapped and ablated. Ablation was successful. CONCLUSION Status electrophysiology study, mapping, radiofrequency ablation of atrial flutter. COMMENT AND RECOMMENDATIONS The patient going to be transferred to the telemetry unit. She will be observed, when stable can be discharged home. MD GARETT Smith/BRANDEN /5:46 PM /6:09 PM
[2017-05-24] MEDS: APIXABAN 5 MG TABLET PO SCH (22:01)
[2017-05-24] MEDS: METOPROLOL TARTRATE 50 MG TAB PO SCH (22:01)
[2017-05-25] VITALS (9 sets, daily range): BP systolic 96–119; BP diastolic 53–76; PULSE 69–91; RESP 16–17; TEMP 97.3–98.3; O2SAT 96–97
[2017-05-25 06:39] LABS: INTERNATIONAL NORMALIZED RATIO 1.1 RATIO; PROTHROMBIN TIME - PATIENT 11.4 SEC (9.8-11.6)
[2017-05-25 07:02] LABS: CHOLESTEROL/ HDL RATIO 2.86 RATIO; HDL CHOLESTEROL 53.1 MG/DL (40.0-60.0)
--- NOTE | 2017-05-25 07:58 | PD.CARD.PN ---
Subjective Subjective Remarks Feeling better. Objective Medications Current Medications Medications (Trade) Dose Ordered Sig/Mallory Route Start Time Stop Time Status Last Admin (NS Flush) 2 ml UNSCH PRN IV FLUSH 05/23/17 16:45 (NS Flush) 2 ml BID IV FLUSH 05/23/17 21:00 05/24/17 22:03 (Tylenol) 650 mg Q4H PRN PO 05/23/17 16:45 (Zofran Inj) 4 mg Q6H PRN IVP 05/23/17 16:45 (Restoril) 15 mg HS PRN PO 05/23/17 16:45 (Narcan Inj) 0.4 mg UNSCH PRN IV PUSH 05/23/17 16:45 (Milk Of Magnesia Liq) 30 ml Q12H PRN PO 05/23/17 16:45 (Senokot) 17.2 mg Q12H PRN PO 05/23/17 16:45 (Dulcolax Supp) 10 mg DAILY PRN RECTAL 05/23/17 16:45 (Lactulose Liq) 30 ml DAILY PRN PO 05/23/17 16:45 (Aspirin Chew) 81 mg DAILY CHEW 05/24/17 09:00 05/24/17 09:56 (Estradiol) 1 mg DAILY PO 05/24/17 09:00 05/24/17 09:56 (Oscal-D 250-125) 500 mg BID PO 05/23/17 21:00 05/24/17 22:01 (Pravachol) 40 mg DAILY PO 05/24/17 09:00 05/24/17 09:00 (Percocet 5-325 Mg) 1 tab Q4H PRN PO 05/24/17 18:15 (Percocet 5-325 Mg) 2 tab Q4H PRN PO 05/24/17 18:15 (Ativan Inj) 0.5 mg UNSCH PRN IV PUSH 05/24/17 18:15 05/25/17 18:14 (Atropine Inj) 0.5 mg UNSCH PRN IV PUSH 05/24/17 18:15 Sodium Chloride 250 ml @ 500 mls/hr ONCE PRN IV 05/24/17 18:15 05/25/17 18:14 (Zofran Inj) 4 mg Q4H PRN IV PUSH 05/24/17 18:15 (Xylocaine 1% Inj (50 ml)) 10 ml UNSCH PRN INFIL 05/24/17 18:15 05/25/17 18:14 (Lopressor) 50 mg Q12H PO 05/24/17 22:00 05/24/17 22:01 (Eliquis) 5 mg BID PO 05/24/17 21:00 05/24/17 22:01 Vital Signs / I&O Vital Signs Date Time Temp Pulse Resp B/P (MAP) Pulse Ox O2 Delivery O2 Flow Rate FiO2 05/25/17 04:00 91 05/25/17 03:56 98.2 88 17 102/60 (74) 97 05/25/17 03:00 69 05/25/17 02:00 84 05/25/17 01:19 96/58 (71) 05/25/17 01:00 75 05/25/17 00:00 98.3 88 16 97/53 (68) 96 05/25/17 00:00 77 05/24/17 23:00 116/67 (83) 05/24/17 23:00 87 05/24/17 22:53 112/65 (81) 05/24/17 22:00 91 05/24/17 21:56 94 Room Air 05/24/17 21:56 98.6 92 18 121/76 (91) 94 05/24/17 21:36 97 05/24/17 21:00 89 05/24/17 20:00 93 05/24/17 19:00 80 05/24/17 12:03 97.5 59 17 98/56 (70) 93 05/24/17 08:03 97.3 56 17 114/65 (81) 96 05/24/17 08:00 76 I/O 05/24/17 05/24/17 05/24/17 05/25/17 05/25/17 05/25/17 07:00 15:00 23:00 07:00 15:00 23:00 Intake Total 120 ml 240 ml Output Total 500 ml Balance 120 ml -260 ml Intake Oral 240 ml IV Total 120 ml Output Urine Total 500 ml Physical Exam GENERAL: Well-nourished, well-developed patient. SKIN: Warm and dry. Groin site soft without bruising or bleeding. HEAD: Normocephalic. EYES: No scleral icterus. No injection or drainage. NECK: Supple, trachea midline. No JVD or lymphadenopathy. CARDIOVASCULAR: Regular rate and rhythm without murmurs, gallops, or rubs. RESPIRATORY: Breath sounds equal bilaterally. No accessory muscle use. GASTROINTESTINAL: Abdomen soft, non-tender, nondistended. EXTREMITIES: No cyanosis, or edema. NEUROLOGICAL: Awake, alert, and oriented x 3. Non-focal. Laboratory Laboratory Tests Test 05/24/17 10:35 05/24/17 15:35 05/25/17 06:09 Total Creatine Kinase 51 U/L 55 U/L Troponin I LESS THAN 0.02 NG/ML LESS THAN 0.02 NG/ML Prothrombin Time 11.4 SEC Prothromb Time International Ratio 1.1 RATIO Activated Partial Thromboplast Time 26.6 SEC Triglycerides Level 188 MG/DL Cholesterol Level 152 MG/DL LDL Cholesterol 61 MG/DL HDL Cholesterol 53.1 MG/DL Cholesterol/HDL Ratio 2.86 RATIO Assessment and Plan Problem List: (1) Atrial flutter with rapid ventricular response ICD Codes: I48.92 - Unspecified atrial flutter Status: Acute Plan: Normal sinus rhythm on telemetry status post atrial flutter ablation. Continue eliquis. May be discharged home at the discretion of the managing team. Follow-up with Dr. foster in 3 weeks per my discussion with him. Alexandra Bills May 25, 2017 07:58
[2017-05-25] MEDS: ESTRADIOL 1 MG TAB PO SCH (09:22)
[2017-05-25] MEDS: ASPIRIN 81 MG CHEW TAB CHEW SCH (09:22)
[2017-05-25] MEDS: METOPROLOL TARTRATE 50 MG TAB PO SCH (09:22)
[2017-05-25] MEDS: CALCIUM/VITAMIN D 250 MG/125 U TAB PO SCH (09:22)
[2017-05-25] MEDS: PRAVASTATIN SOD 40 MG TAB PO SCH (09:22)
[2017-05-25] MEDS: APIXABAN 5 MG TABLET PO SCH (09:22)
[2017-05-25] MEDS: SODIUM CHLORIDE 0.9% FLUSH 10 ML FLUSH IV FLUSH SCH (09:23)
[2017-05-25] MEDS ORDERED: METO-309 PO (11:20)
[2017-05-25] MEDS ORDERED: APIX5TAB PO (11:20)
--- NOTE | 2017-05-25 11:24 | HHI.DS ---
Discharge Summary Admission Date May 23, 2017 at 4:54 pm Discharge Date: May 25, 2017 Admitting Diagnosis new onset aflutter with rvr. (1) Atrial flutter ICD Code: I48.92 - Unspecified atrial flutter (2) Hyperlipidemia ICD Code: E78.5 - Hyperlipidemia, unspecified Procedures RF ablation 05/24/2016 1. Electrocardiogram. At baseline the patient was in atrial flutter. Postprocedure the patient in sinus rhythm. 2. Basic interval. Base cycle length was around 700 milliseconds. Post ablation it was around 980 milliseconds. AH at 120 and HV at 82 milliseconds. 3. Tachyarrhythmia. Atrial flutter was mapped and ablated. Ablation was successful. CONCLUSION Status electrophysiology study, mapping, radiofrequency ablation of atrial flutter. Echo 05/24/2016 Normal left ventricular size. Wall thickness is normal. The left ventricular systolic function is moderately reduced with an estimated ejection fraction in the range of 40-45%. Mitral annular calcification is present. There is a trivial pericardial effusion present. Brief History - From Admission Ms. Sierra is a transgender 71 year old female with a history of hyperlipidemia who presents to the ED at the advise of her PCP regarding Atrial flutter/Atrial fibrillation. She reports fatigue, exertional dyspnea over two weeks prior to this admission. At the time of this interview, she denies any chest pain, shortness of breath, fever, chills. No cough, abdominal pain. No changes in bowel or bladder habits. Patient's is at bedside. CBC/BMP: 05/23/17 1408 05/23/17 1408 Significant Findings Laboratory Tests Test 05/23/17 14:08 05/24/17 10:35 05/24/17 15:35 05/25/17 06:09 Mean Corpuscular Hemoglobin 34.1 PG (27.0-34.0) Monocytes (%) (Auto) 10.5 % (0.0-8.0) Creatinine 1.05 MG/DL (0.50-1.00) Aspartate Amino Transf (AST/SGOT) 38 U/L (15-37) Estimat Glomerular Filtration Rate 52 ML/MIN (>89) Troponin I LESS THAN 0.02 NG/ML LESS THAN 0.02 NG/ML LESS THAN 0.02 NG/ML Triglycerides Level 188 MG/DL (42-150) Imaging Last Impressions Chest X-Ray 05/23/17 1213 Signed Impressions: Service Date/Time: Tuesday, May 23, 2017 12:24 - CONCLUSION: Cardiomegaly without failure. Behzad Paul MD FACR PE at Discharge GENERAL: NAD SKIN: Warm and dry. HEAD: Normocephalic. EYES: No scleral icterus. No injection or drainage. NECK: Supple, trachea midline. No JVD or lymphadenopathy. CARDIOVASCULAR: Irregular Regular rate and rhythm without murmurs, gallops, or rubs. RESPIRATORY: Breath sounds equal bilaterally. No accessory muscle use. GASTROINTESTINAL: Abdomen soft, non-tender, nondistended. MUSCULOSKELETAL: No cyanosis, or edema. BACK: Nontender without obvious deformity. No CVA tenderness. Pt update on day of discharge Patient is currently doing well. No chest pain, SOB, fever, chills. Hospital Course Ms. Sierra is a pleasant 71 year old female (trans-gender) who presents to the ED today at the advise of her PCP regarding Atrial flutter/Atrial fibrillation. She does not have any history of cardiac arrhythmia. - Atrial flutter - New onset, EKG reviewed by me. - Cardiology evaluated patient and patient underwent RF ablation by Dr. Burton (EP). - Echo shows EF 40-45%. - [id number] score would be 1 (age, biological gender male). - Continue Metoprolol for rate control and Apixaban for anti-coagulation - Follow up with Dr. Burton in 3 weeks. - Hyperlipidemia - continue statin. Full code. Apixaban. Pt Condition on Discharge: Good Discharge Disposition: Discharge Home Discharge Time: <= 30 minutes Discharge Instructions DIET: Follow Instructions for: Heart Healthy Diet Activities you can perform: Regular-No Restrictions Follow up Referrals: Cardiology - 3 Weeks with Cleo Burton MD PCP Follow-up - 1 Week New Medications: Apixaban (Eliquis) 5 Mg Tab 5 MG PO BID for Blood Clot Prevention, #60 TAB Metoprolol Tartrate (Lopressor) 50 Mg Tab 50 MG PO Q12H for Heart, #60 TAB Continued Medications: Calcium Carbonate-Cholecalciferol (Calcium + D3) 600-200 Mg-Unit Tab 1 TAB PO BID, #60 TAB 2 Refills Estradiol (Estrace) 1 Mg Tab 1 MG PO DAILY for Estrogen Supplements, #90 TAB 3 Refills Simvastatin (Simvastatin) 20 Mg Tab 20 MG PO DAILY for Cholesterol Management, #90 TAB 3 Refills Discontinued Medications: Aspirin (Aspirin) 81 Mg Chew 81 MG CHEW DAILY, TAB 0 Refills Sarah Treviño DO May 25, 2017 11:24 am
--- NOTE | 2017-05-25 21:15 | EKG ---
Date Performed: 05/25/2017 Time Performed: 05:07:30 PTAGE: 71 years EKG: Sinus rhythm with 1st degree A-V block Left axis deviation Abnormal ECG PREVIOUS TRACING : 05/24/2017 20.28 Compared to prior tracing no significant change DOCTOR: Felicia Jara Interpretating Date/Time 05/25/2017 21:15:03
--- NOTE | 2017-05-25 21:44 | EKG ---
Date Performed: 05/24/2017 Time Performed: 20:28:50 PTAGE: 71 years EKG: Sinus rhythm with 1st degree A-V block Left axis deviation Possible anteroseptal infarct - age undetermined Abnor mal ECG PREVIOUS TRACING : 05/24/2017 11.47 Compared to the previous tracing a flutter no longer presen t DOCTOR: Felicia Jara Interpretating Date/Time 05/25/2017 21:43:15
== END 2017-05-25 13:06 | disposition home or self-care (01) | DRG 274 ==
LOC: NEPC 11:58 → NEDA 16:54 → N04B 18:20 → HCIS 05-24 15:54
PROVIDERS: ADMIT Hospitalist; ATTEND Hospitalist
PROC: 02K83ZZ Map Conduction Mechanism, Percutaneous Approach (ICD-10-PCS; 2017-05-24)
PROC: 4A023FZ Measurement of Cardiac Rhythm, Percutaneous Approach (ICD-10-PCS; 2017-05-24)
PROC: 4A0234Z Measurement of Cardiac Electrical Activity, Percutaneous Approach (ICD-10-PCS; 2017-05-24)
PROC: 02583ZZ Destruction of Conduction Mechanism, Percutaneous Approach (ICD-10-PCS; principal; 2017-05-24 18:15)
DX: I48.92 Unspecified atrial flutter (principal); Z68.41 Body mass index [BMI] 40.0-44.9, adult; E66.01 Morbid (severe) obesity due to excess calories; E78.5 Hyperlipidemia, unspecified
CPT/HCPCS: 71046; 80053; 80061; 82550; 83735; 83880; 84443; 84484; 85025; 85610; 85730; 93005; 93306; 93312; 93320; 93325; 93623; 93653; 93662; 96365; 96366; 96375; C1730; C2630; J1644; J2370; J7050